=== PATIENT | female | born 2000 | race Caucasian/White ===

== ENCOUNTER 2021-01-28 12:17 | Observation (INO) ==
[2021-01-28] MEDS ORDERED: SODIUM CHLORIDE 0.9% 1000ML 2,000 ML IV ONE (13:32)
--- NOTE | 2021-01-28 13:44 | Emergency Department Note ---
Impression & Plan DKA (diabetic ketoacidoses), Hyperglycemia, Diabetes ED Provider Note NAME: NANDO LOZANO AGE: 20 SEX: F : 2000 ARRIVES VIA: Walk-In INFORMANT: Patient ED PROVIDER(S): Kirby Ambriz DO CHIEF COMPLAINT: Nausea vomiting and hyperglycemia HPI: Patient is a 20-year-old female who presents ER for nausea and vomiting. She is type I diabetic. Blood sugars were elevated last night and persistently elevated this morning at 500. She will give herself 4 units of insulin/Humalog this morning with blood sugar of 500 as she did not eat anything. She notes this was not her typical treatment for 500. She vomited several times today. Denies any headache or change in vision. No chest pain or shortness of breath. Admits to epigastric belly pain which has been persistent since this started. No dysuria, urgency, or frequency. Last menstrual period just finished up. No other exacerbating or remitting factors. ROS: See above HPI for pertinent positives & negatives. A total of 10 systems reviewed and were otherwise negative. PAST MEDICAL HISTORY:See Below PAST SURGICAL HISTORY:See Below FAMILY HISTORY:See Below SOCIAL HISTORY:See Below HOME MEDICATIONS:See Below ALLERGIES:See Below VITALS:See Below PHYSICAL EXAMINATION: GENERAL: Sitting up in bed, alert, well appearing, well nourished, no distress, non-toxic EYE EXAM: normal conjunctiva. OROPHARYNX: no exudate, no erythema, lips, buccal mucosa, and tongue normal and mucous membranes are moist NECK: supple, no nuchal rigidity, no adenopathy, non-tender LUNGS: Clear to auscultation. Normal chest wall mechanics HEART: no murmurs, S1 normal and S2 normal ABDOMEN: abdomen soft, non-tender, normo-active bowel sounds, no masses, no rebound or guarding. UPPER EXTREMITIES: upper extremities are grossly normal. LOWER EXTREMITIES: No pitting edema. NEURO EXAM: Normal sensorium, cranial nerves II-XII grossly intact, normal speech, no gross weakness of arms, no gross weakness of legs. MEDICAL DECISION MAKING: Patient is a 20-year-old female who presents the ER for nausea vomiting associate with blood sugars of 500. She is type I diabetic. IV was established blood work was obtained. Heart rate was 140s. She was given 3 L of IV fluids. Labs show no significant leukocytosis and hemoglobin of 16.5 which favor secondary to dehydration. VBG with a pH of 7.25. BMP with a CO2 of 15. Lipase was unremarkable. UA with plus for ketones. was negative. Covid was negative. CT abdomen pelvis was unremarkable. Sugar was 280 on the BMP. With it being this low continued aggressive IV fluid hydration as she is feeling significantly better. With her acidosis is 7.25 and bicarb at 15 discussed with the hospitalist for observation overnight patient was admitted for further work- up Triage Nursing notes reviewed. Limited review of prior medical records performed Vital Signs: reviewed and remarkable for tachy Differential diagnosis: Differential diagnoses includes but is not limited to gastritis, peptic ulcer disease, GERD, gallbladder disease, pancreatitis, small bowel obstruction, acute coronary syndrome, pericarditis, ischemic bowel, irritable bowel disease, irritable bowel syndrome, appendicitis, diverticulitis, malignancy, hernia, urinary tract infection, torsion, [/ectopic (if female)], perforation, trauma, infectious. ER treatment provided: See below Diagnostics interpreted by me: Cardiac Monitoring: An order was placed for continuous cardiac monitoring. The monitor shows a rate of 121 with sinus rhythm. Laboratory studies: As stated above and show below. Imaging studies: CT abdomen pelvis was unremarkable Consultation(s): Discussed with Markos who is working with Dr. Hager for further evaluation Procedures: none Critical Care: None Past Med/Surg History Medical History (Updated 01/28/21 @ 17:11 by Kirby Ambriz DO) Diabetes Hyperglycemia Family History (Updated 01/28/21 @ 15:52 by TRISHA Harrison) Father Dyslipidemia Social History Smoking Status: Never smoker Feels Safe at Home: Yes Allergies Allergies Allergy/AdvReac Type Severity Reaction Status Date / Time No Known Allergies Allergy Unverified 01/28/21 15:03 Home Meds Home Medications Medication Instructions Recorded Confirmed drospirenone-ethinyl estradiol 1 tab PO HS 01/28/21 01/28/21 insulin degludec [Tresiba 24 unit SUBCUT HS 01/28/21 01/28/21 FlexTouch U-100] insulin lispro [Humalog KwikPen 0 unit SUBCUT TID 01/28/21 01/28/21 Insulin] Results & Data (ED) Vital Signs Vital Signs - 24 hr 01/28/21 12:32 01/28/21 13:54 01/28/21 15:09 Temperature 36.5 C Temperature Source Temporal Artery Scan Pulse Rate 149 H Pulse Rate [Left] 108 H 94 H Pulse Rhythm [Left] Regular Pulse Strength [Left] Normal Respiratory Rate 20 16 20 Respiratory Effort / Characteristics Non-Labored Spontaneous Non-Labored Spontaneous Non-Labored Spontaneous Respiratory Depth Normal Normal Normal Respiratory Pattern Regular Regular Regular Blood Pressure 115/88 Blood Pressure [Right Arm] 115/87 107/73 Blood Pressure Mean 97 Blood Pressure Mean [Right Arm] 96 84 Blood Pressure Position Sitting Blood Pressure Position [Right Arm] Lying Pulse Oximetry 99 98 99 Oxygen Delivery Method Room Air Room Air Room Air Sepsis Recent Fever Within 48 Hours No Sepsis New/Unexplained Change in Mental Status N/A Sepsis Action Taken by Nursing No Action Required 01/28/21 16:39 Temperature Temperature Source Pulse Rate Pulse Rate [Left] 95 H Pulse Rhythm [Left] Pulse Strength [Left] Respiratory Rate 20 Respiratory Effort / Characteristics Respiratory Depth Respiratory Pattern Blood Pressure Blood Pressure [Right Arm] 109/68 Blood Pressure Mean Blood Pressure Mean [Right Arm] 81 Blood Pressure Position Blood Pressure Position [Right Arm] Pulse Oximetry 99 Oxygen Delivery Method Room Air Sepsis Recent Fever Within 48 Hours Sepsis New/Unexplained Change in Mental Status Sepsis Action Taken by Nursing Laboratory Data Result diagrams: 01/28/21 13:50 01/28/21 16:12 Lab Results 01/28/21 01/28/21 01/28/21 Range/Units 13:35 13:35 13:35 WBC (4.8-10.8) K/uL RBC (4.2-5.4) M/uL Hgb (12.0-16.0) g/dL POC Hgb (12.0-16.0) g/dl Hct (37-47) % POC Hct (37-47) % MCV (80-100) fL MCH (25-34) pg MCHC (32-36) g/dL RDW Std Deviation (36.4-46.3) fL RDW Coeff of Clarice (11.5-14.5) % Plt Count (130-400) K/uL MPV (7.4-10.4) fL Immature Gran % (Auto) % Neut % (Auto) % Lymph % (Auto) % Delta % (Auto) % Eos % (Auto) % Baso % (Auto) % Neut # (Auto) (1.4-6.5) K/uL Lymph # (Auto) (1.2-3.4) K/uL Delta # (Auto) (0.11-0.59) K/uL Eos # (Auto) (0-0.5) K/uL Baso # (Auto) (0-0.2) K/uL Immature Gran # (Auto) (0.00-0.02) K/uL VBG pH (7.36-7.41) VBG pCO2 (38-50) mmHg VBG pO2 mmHg VBG HCO3 mmol/L VBG O2 Saturation % VBG Base Excess mEq/L Barometric Pressure mm/Hg POC Sodium (135-144) mmol/L Sodium (136-145) mmol/L POC Potassium (3.3-5.0) mmol/L Potassium (3.5-5.1) mmol/L POC Chloride (101-112) mmol/L Chloride (98-107) mmol/L Carbon Dioxide (21-32) mmol/L POC Total CO2 (24-31) mmol/L Anion Gap (3-11) POC Anion Gap (16-25) mmol/L POC BUN (7-18) mg/dl BUN (7-18) mg/dl Creatinine (0.6-1.2) mg/dl POC Creatinine mg/dl Est Cr Clr Drug Dosing ml/min Est GFR ( Amer) Est GFR (Non-Af Amer) BUN/Creatinine Ratio (10-20) Glucose (70-99) mg/dl POC Glucose 288 H (70-99) mg/dl POC Glucose (other) (70-99) mg/dl Calcium (8.5-10.1) mg/dl POC Ioniz Calcium Naheed mmol/l Total Bilirubin (0.2-1) mg/dl AST (15-37) U/L ALT (12-78) U/L Alkaline Phosphatase (45-117) U/L Total Protein (6.4-8.2) gm/dl Albumin (3.4-5.0) gm/dl Globulin (2.5-4.0) gm/dl Albumin/Globulin Ratio (0.9-2) Lipase (73-393) U/L Urine Color Yellow Urine Appearance Cloudy A (Clear) Urine pH 5.5 (4.5-7.5) Ur Specific [place] 1.041 H (1.000-1.030) Urine Protein 3+ H (Negative) Urine Glucose (UA) 3+ H (Negative) Urine Ketones 4+ H (Negative) Urine Blood 3+ H (Negative) Urine Nitrite Negative (Negative) Urine Bilirubin Negative (Negative) Urine Urobilinogen Negative (Negative) Ur Leukocyte Esterase Negative (Negative) Urine WBC (Auto) >30 H (0-5) /hpf Urine RBC (Auto) 10-30 H (0-4) /hpf U Hyaline Cast (Auto) 1-5 (0-5) /lpf U Epithel Cells (Auto) >30 H (0-5) /lpf Urine Bacteria (Auto) 1+ H (Negative) Granular Casts 1-5 H (0) /lpf Urine Test Negative (Negative) COVID-19 Eval Order SARS-CoV-2, RNA, NAAT (NEGATIVE) 01/28/21 01/28/21 01/28/21 Range/Units 13:50 13:50 13:55 WBC 6.46 (4.8-10.8) K/uL RBC 5.32 (4.2-5.4) M/uL Hgb 16.5 H (12.0-16.0) g/dL POC Hgb 18.0 H (12.0-16.0) g/dl Hct 46.4 (37-47) % POC Hct 53 H (37-47) % MCV 87.2 (80-100) fL MCH 31.0 (25-34) pg MCHC 35.6 (32-36) g/dL RDW Std Deviation 38.7 (36.4-46.3) fL RDW Coeff of Clarice 12.0 (11.5-14.5) % Plt Count 260 (130-400) K/uL MPV 11.2 H (7.4-10.4) fL Immature Gran % (Auto) 0.2 % Neut % (Auto) 78.5 % Lymph % (Auto) 16.6 % Delta % (Auto) 4.0 % Eos % (Auto) 0.2 % Baso % (Auto) 0.5 % Neut # (Auto) 5.08 (1.4-6.5) K/uL Lymph # (Auto) 1.07 L (1.2-3.4) K/uL Delta # (Auto) 0.26 (0.11-0.59) K/uL Eos # (Auto) 0.01 (0-0.5) K/uL Baso # (Auto) 0.03 (0-0.2) K/uL Immature Gran # (Auto) 0.01 (0.00-0.02) K/uL VBG pH (7.36-7.41) VBG pCO2 (38-50) mmHg VBG pO2 mmHg VBG HCO3 mmol/L VBG O2 Saturation % VBG Base Excess mEq/L Barometric Pressure mm/Hg POC Sodium 133 L (135-144) mmol/L Sodium 131 L (136-145) mmol/L POC Potassium 4.0 (3.3-5.0) mmol/L Potassium 3.8 (3.5-5.1) mmol/L POC Chloride 104 (101-112) mmol/L Chloride 102 (98-107) mmol/L Carbon Dioxide 15 L (21-32) mmol/L POC Total CO2 15 L (24-31) mmol/L Anion Gap 14.0 H (3-11) POC Anion Gap 19.0 (16-25) mmol/L POC BUN 14 (7-18) mg/dl BUN 13 (7-18) mg/dl Creatinine 1.14 (0.6-1.2) mg/dl POC Creatinine 0.6 mg/dl Est Cr Clr Drug Dosing 58.5 ml/min Est GFR ( Amer) 80.2 Est GFR (Non-Af Amer) 69.2 BUN/Creatinine Ratio 11.7 (10-20) Glucose 285 H (70-99) mg/dl POC Glucose (70-99) mg/dl POC Glucose (other) 290 H (70-99) mg/dl Calcium 10.0 (8.5-10.1) mg/dl POC Ioniz Calcium Naheed 1.33 mmol/l Total Bilirubin 0.7 (0.2-1) mg/dl AST 12 L (15-37) U/L ALT 20 (12-78) U/L Alkaline Phosphatase 107 (45-117) U/L Total Protein 9.2 H (6.4-8.2) gm/dl Albumin 4.1 (3.4-5.0) gm/dl Globulin 5.1 H (2.5-4.0) gm/dl Albumin/Globulin Ratio 0.8 L (0.9-2) Lipase (73-393) U/L Urine Color Urine Appearance (Clear) Urine pH (4.5-7.5) Ur Specific [place] (1.000-1.030) Urine Protein (Negative) Urine Glucose (UA) (Negative) Urine Ketones (Negative) Urine Blood (Negative) Urine Nitrite (Negative) Urine Bilirubin (Negative) Urine Urobilinogen (Negative) Ur Leukocyte Esterase (Negative) Urine WBC (Auto) (0-5) /hpf Urine RBC (Auto) (0-4) /hpf U Hyaline Cast (Auto) (0-5) /lpf U Epithel Cells (Auto) (0-5) /lpf Urine Bacteria (Auto) (Negative) Granular Casts (0) /lpf Urine Test (Negative) COVID-19 Eval Order SARS-CoV-2, RNA, NAAT (NEGATIVE) 01/28/21 01/28/21 01/28/21 Range/Units 14:55 14:55 14:58 WBC (4.8-10.8) K/uL RBC (4.2-5.4) M/uL Hgb (12.0-16.0) g/dL POC Hgb (12.0-16.0) g/dl Hct (37-47) % POC Hct (37-47) % MCV (80-100) fL MCH (25-34) pg MCHC (32-36) g/dL RDW Std Deviation (36.4-46.3) fL RDW Coeff of Clarice (11.5-14.5) % Plt Count (130-400) K/uL MPV (7.4-10.4) fL Immature Gran % (Auto) % Neut % (Auto) % Lymph % (Auto) % Delta % (Auto) % Eos % (Auto) % Baso % (Auto) % Neut # (Auto) (1.4-6.5) K/uL Lymph # (Auto) (1.2-3.4) K/uL Delta # (Auto) (0.11-0.59) K/uL Eos # (Auto) (0-0.5) K/uL Baso # (Auto) (0-0.2) K/uL Immature Gran # (Auto) (0.00-0.02) K/uL VBG pH (7.36-7.41) VBG pCO2 (38-50) mmHg VBG pO2 mmHg VBG HCO3 mmol/L VBG O2 Saturation % VBG Base Excess mEq/L Barometric Pressure mm/Hg POC Sodium (135-144) mmol/L Sodium (136-145) mmol/L POC Potassium (3.3-5.0) mmol/L Potassium (3.5-5.1) mmol/L POC Chloride (101-112) mmol/L Chloride (98-107) mmol/L Carbon Dioxide (21-32) mmol/L POC Total CO2 (24-31) mmol/L Anion Gap (3-11) POC Anion Gap (16-25) mmol/L POC BUN (7-18) mg/dl BUN (7-18) mg/dl Creatinine (0.6-1.2) mg/dl POC Creatinine mg/dl Est Cr Clr Drug Dosing ml/min Est GFR ( Amer) Est GFR (Non-Af Amer) BUN/Creatinine Ratio (10-20) Glucose (70-99) mg/dl POC Glucose 180 H (70-99) mg/dl POC Glucose (other) (70-99) mg/dl Calcium (8.5-10.1) mg/dl POC Ioniz Calcium Naheed mmol/l Total Bilirubin (0.2-1) mg/dl AST (15-37) U/L ALT (12-78) U/L Alkaline Phosphatase (45-117) U/L Total Protein (6.4-8.2) gm/dl Albumin (3.4-5.0) gm/dl Globulin (2.5-4.0) gm/dl Albumin/Globulin Ratio (0.9-2) Lipase (73-393) U/L Urine Color Urine Appearance (Clear) Urine pH (4.5-7.5) Ur Specific [place] (1.000-1.030) Urine Protein (Negative) Urine Glucose (UA) (Negative) Urine Ketones (Negative) Urine Blood (Negative) Urine Nitrite (Negative) Urine Bilirubin (Negative) Urine Urobilinogen (Negative) Ur Leukocyte Esterase (Negative) Urine WBC (Auto) (0-5) /hpf Urine RBC (Auto) (0-4) /hpf U Hyaline Cast (Auto) (0-5) /lpf U Epithel Cells (Auto) (0-5) /lpf Urine Bacteria (Auto) (Negative) Granular Casts (0) /lpf Urine Test (Negative) COVID-19 Eval [facility] SARS-CoV-2, RNA, NAAT NEGATIVE (NEGATIVE) 01/28/21 01/28/21 01/28/21 Range/Units 15:00 16:12 16:52 WBC (4.8-10.8) K/uL RBC (4.2-5.4) M/uL Hgb (12.0-16.0) g/dL POC Hgb (12.0-16.0) g/dl Hct (37-47) % POC Hct (37-47) % MCV (80-100) fL MCH (25-34) pg MCHC (32-36) g/dL RDW Std Deviation (36.4-46.3) fL RDW Coeff of Clarice (11.5-14.5) % Plt Count (130-400) K/uL MPV (7.4-10.4) fL Immature Gran % (Auto) % Neut % (Auto) % Lymph % (Auto) % Delta % (Auto) % Eos % (Auto) % Baso % (Auto) % Neut # (Auto) (1.4-6.5) K/uL Lymph # (Auto) (1.2-3.4) K/uL Delta # (Auto) (0.11-0.59) K/uL Eos # (Auto) (0-0.5) K/uL Baso # (Auto) (0-0.2) K/uL Immature Gran # (Auto) (0.00-0.02) K/uL VBG pH 7.25 L (7.36-7.41) VBG pCO2 33 L (38-50) mmHg VBG pO2 32 mmHg VBG HCO3 14 mmol/L VBG O2 Saturation 65.3 % VBG Base Excess -12.0 mEq/L Barometric Pressure 727.4 mm/Hg POC Sodium (135-144) mmol/L Sodium 139 D (136-145) mmol/L POC Potassium (3.3-5.0) mmol/L Potassium 4.5 D (3.5-5.1) mmol/L POC Chloride (101-112) mmol/L Chloride 112 H (98-107) mmol/L Carbon Dioxide 17 L (21-32) mmol/L POC Total CO2 (24-31) mmol/L Anion Gap 10.0 (3-11) POC Anion Gap (16-25) mmol/L POC BUN (7-18) mg/dl BUN 11 (7-18) mg/dl Creatinine 0.79 D (0.6-1.2) mg/dl POC Creatinine mg/dl Est Cr Clr Drug Dosing 84.5 ml/min Est GFR ( Amer) 124.9 Est GFR (Non-Af Amer) 107.8 BUN/Creatinine Ratio 13.5 (10-20) Glucose 180 H (70-99) mg/dl POC Glucose 153 H (70-99) mg/dl POC Glucose (other) (70-99) mg/dl Calcium 7.6 L D (8.5-10.1) mg/dl POC Ioniz Calcium Naheed mmol/l Total Bilirubin (0.2-1) mg/dl AST (15-37) U/L ALT (12-78) U/L Alkaline Phosphatase (45-117) U/L Total Protein (6.4-8.2) gm/dl Albumin (3.4-5.0) gm/dl Globulin (2.5-4.0) gm/dl Albumin/Globulin Ratio (0.9-2) Lipase 85 (73-393) U/L Urine Color Urine Appearance (Clear) Urine pH (4.5-7.5) Ur Specific [place] (1.000-1.030) Urine Protein (Negative) Urine Glucose (UA) (Negative) Urine Ketones (Negative) Urine Blood (Negative) Urine Nitrite (Negative) Urine Bilirubin (Negative) Urine Urobilinogen (Negative) Ur Leukocyte Esterase (Negative) Urine WBC (Auto) (0-5) /hpf Urine RBC (Auto) (0-4) /hpf U Hyaline Cast (Auto) (0-5) /lpf U Epithel Cells (Auto) (0-5) /lpf Urine Bacteria (Auto) (Negative) Granular Casts (0) /lpf Urine Test (Negative) COVID-19 Eval Order SARS-CoV-2, RNA, NAAT (NEGATIVE) Administered Medications Discontinued Medications Sodium Chloride (Nss 1000ml) 2,000 mls @ 999 mls/hr IV .Q2H1M ONE Stop: 01/28/21 15:32 Last Infusion: 01/28/21 15:16 Dose: 0 mls/hr Documented by: [id number] Admin: 01/28/21 13:56 Dose: 999 mls/hr Documented by: [id number] Sodium Chloride (Nss 1000ml) 1,000 mls @ 999 mls/hr IV .Q1H1M ONE Stop: 01/28/21 16:09 Last Infusion: 01/28/21 16:40 Dose: 0 mls/hr Documented by: [id number] Admin: 01/28/21 15:16 Dose: 999 mls/hr Documented by: [id number] Ioversol (Optiray 320 100ml) 89 ml IV ONCE ONE Stop: 01/28/21 14:32 Last Admin: 01/28/21 14:31 Dose: 89 ml Documented by: [id number] Imaging Data Radiologist's Impression: Abdomen/Pelvis CT 01/28/21 13:37 CT SCAN OF THE ABDOMEN AND PELVIS WITH IV CONTRAST CLINICAL HISTORY: Generalized abdominal pain. Nausea and vomiting. Hyperglycemia. COMPARISON STUDY: No priors. TECHNIQUE: Following the IV administration of 89 cc of Optiray 320, CT scan of the abdomen and pelvis is performed from the lung bases to the proximal femora. Images are reviewed in the axial, sagittal, and coronal planes. IV contrast was administered without complication. A dose lowering technique was utilized adhering to the principles of ALARA. CT DOSE: 243.67 mGycm FINDINGS: Lung bases: The heart is normal in size and without pericardial effusion. The lung bases are clear. Liver: The contrast-enhanced liver is normal in size, contour, and attenuation. Fatty infiltration is seen adjacent to falciform ligament. There is no intrahepatic biliary ductal dilatation. The hepatic veins and portal veins are patent. Gallbladder: Unremarkable. Spleen: Normal in size and attenuation. Pancreas: Unremarkable. Adrenal glands: Unremarkable. Kidneys: The contrast enhanced kidneys are normal in size and without hydronephrosis. The kidneys enhance symmetrically. Abdominal vasculature: The abdominal aorta is normal in course and caliber. Bowel: There is no bowel obstruction. The appendix is well-visualized and normal. Peritoneum: There is no intraperitoneal free air or abdominal ascites. Lymphadenopathy: None. Pelvic viscera: The bladder, uterus, and adnexa are normal as visualized noting bilateral ovarian follicles. Skeletal structures: No lytic or blastic lesions are seen. IMPRESSION: There are no acute infectious or inflammatory findings in the abdomen or pelvis. ACT 112: Negative or not required by law. Electronically signed by: Guillermo Jin M.D. 01/28/2021 2:41 PM Discharge Plan Visit Data Chief Complaint: Hyperglycemia Stated Complaint: NAUSEA,VOMITING,HI BLOOD SUGAR(TYPE 1)SOB ED Provider: Kirby Ambriz Discharge Problem: DKA (diabetic ketoacidoses), Hyperglycemia, Diabetes Forms Stand Alone Forms: [facility] Prescriptions Prescriptions: No Action insulin lispro [Humalog KwikPen Insulin] 100 unit/mL insulin pen 0 unit SUBCUT TID RF: 0 drospirenone-ethinyl estradiol 3-0.02 mg tablet 1 tab PO HS RF: 0 Tresiba FlexTouch U-100 100 unit/mL (3 mL) insulin pen 24 unit SUBCUT HS RF: 0 Discharge Problem: DKA (diabetic ketoacidoses) Qualifiers: Diabetes mellitus type: type 1 Diabetes mellitus complication detail: without coma Qualified Code(s): E10.10 - Type 1 diabetes mellitus with ketoacidosis without coma Diabetes Qualifiers: Diabetes mellitus type: type 1 Diabetes mellitus complication status: with other specified complication Qualified Code(s): E10.69 - Type 1 diabetes mellitus with other specified complication
[2021-01-28 13:47] LABS: Appearance Urine Cloudy (Clear); Bacteria Urine Automated 1+ (Negative); Bilirubin Urine Negative (Negative); Blood Urine 3+ (Negative); Color Urine Yellow; Epithelial Cell Urine Auto >30 /lpf (0-5); Glucose Urine UA 3+ (Negative); Ketones Urine 4+ (Negative); Leukocyte Esterase Urine Negative (Negative); Nitrite Urine Negative (Negative); Protein Urine 3+ (Negative); Specific Gravity Urine 1.041 (1.000-1.030); Urobilinogen Urine Negative (Negative); WBC Urine Automated >30 /hpf (0-5); pH Urine 5.5 (4.5-7.5)
[2021-01-28 14:00] LABS: Basophils # (auto) 0.03 K/uL (0-0.2); Basophils % (auto) 0.5 %; Eosinophils # (auto) 0.01 K/uL (0-0.5); Eosinophils % (auto) 0.2 %; Hematocrit (blood only) 46.4 % (37-47); Hemoglobin 16.5 g/dL (12.0-16.0); Immature Granulocytes # (auto) 0.01 K/uL (0.00-0.02); Immature Granulocytes % (auto) 0.2 %; Lymphocytes # (auto) 1.07 K/uL (1.2-3.4); Lymphocytes % (auto) 16.6 %; Mean Corpuscular Hgb Conc 35.6 g/dL (32-36); Mean Corpuscular Volume 87.2 fL (80-100); Mean Platelet Volume 11.2 fL (7.4-10.4); Monocytes # (auto) 0.26 K/uL (0.11-0.59); Neutrophils # (auto) 5.08 K/uL (1.4-6.5); Neutrophils % (auto) 78.5 %; Platelet Count 260 K/uL (130-400); RDW Standard Deviation 38.7 fL (36.4-46.3); Red Blood Count 5.32 M/uL (4.2-5.4); White Blood Count 6.46 K/uL (4.8-10.8)
[2021-01-28 14:03] LABS: Pregnancy Test, Urine Negative (Negative)
[2021-01-28 14:09] LABS: iSTAT Creatinine 0.6 mg/dl; iSTAT Ionized Calcium 1.33 mmol/l
[2021-01-28 14:20] LABS: Albumin Level 4.1 gm/dl (3.4-5.0); BUN Creatinine Ratio 11.7 (10-20); Creatinine Clr Calc Pharmacy 58.5 ml/min; Est GFR (African American) 80.2; Est GFR (Non-African American) 69.2; Potassium 3.8 mmol/L (3.5-5.1)
[2021-01-28 14:22] LABS: Albumin Globulin Ratio 0.8 (0.9-2); Bilirubin,Total 0.7 mg/dl (0.2-1); Globulin 5.1 gm/dl (2.5-4.0); Total Protein 9.2 gm/dl (6.4-8.2)
[2021-01-28] MEDS ORDERED: OPTIRAY 320 100ml IV ONE (14:31)
--- NOTE | 2021-01-28 14:42 | CT Scan Report ---
CT SCAN OF THE ABDOMEN AND PELVIS WITH IV CONTRAST CLINICAL HISTORY: Generalized abdominal pain. Nausea and vomiting. Hyperglycemia. COMPARISON STUDY: No priors. TECHNIQUE: Following the IV administration of 89 cc of Optiray 320, CT scan of the abdomen and pelvi s is performed from the lung bases to the proximal femora. Images are reviewed in the axial, sagittal , and coronal planes. IV contrast was administered without complication. A dose lowering technique wa s utilized adhering to the principles of ALARA. CT DOSE: 243.67 mGycm FINDINGS: Lung bases: The heart is normal in size and without pericardial effusion. The lung bases are clear. Liver: The contrast-enhanced liver is normal in size, contour, and attenuation. Fatty infiltration is seen adjacent to falciform ligament. There is no intrahepatic biliary ductal dilatation. The hepatic veins and portal veins are patent. Gallbladder: Unremarkable. Spleen: Normal in size and attenuation. Pancreas: Unremarkable. Adrenal glands: Unremarkable. Kidneys: The contrast enhanced kidneys are normal in size and without hydronephrosis. The kidneys enh ance symmetrically. Abdominal vasculature: The abdominal aorta is normal in course and caliber. Bowel: There is no bowel obstruction. The appendix is well-visualized and normal. Peritoneum: There is no intraperitoneal free air or abdominal ascites. Lymphadenopathy: None. Pelvic viscera: The bladder, uterus, and adnexa are normal as visualized noting bilateral ovarian fol licles. Skeletal structures: No lytic or blastic lesions are seen. IMPRESSION: There are no acute infectious or inflammatory findings in the abdomen or pelvis. ACT 112: Negative or not required by law. Electronically signed by: Guillermo Jin M.D. 01/28/2021 2:41 PM
[2021-01-28] MEDS ORDERED: SODIUM CHLORIDE 0.9% 1000ML 1,000 ML IV ONE (15:09)
[2021-01-28 15:17] LABS: Oxygen Saturation VBG 65.3 %; pH VBG 7.25 (7.36-7.41)
--- NOTE | 2021-01-28 15:45 | History & Physical Report ---
Date of Service January 28, 2021 Assessment & Plan (1) DKA (diabetic ketoacidoses): Patient with mild DKA resolution with gap closure and glucose <180 upon admissio - oral hydration and supplement with IVF if needed - Home insulin, Lantus dose now upon admission to the floor - Aspart sliding scale - BMP q 4 hours - Patient was on lantus before but was changed to Triseba- she is unsure why. Triseba is non-formulary here but is 1:1 conversion (2) Diabetes: DMI reports normally well controlled blood glucose. She reports that she does have the subq scanner at home in [place] just needs to get it. - Triseba 24 units, Humalog Lispro - sliding scale TID 1:10 ratio - Patient with mild case of DKA, - UA negative, contaminated sample - CT scan of abdomen and pelvis negative for acute process including gallbladder (3) Abdominal pain: Likely related to her hyperglycemia and vomitting - CT of the abdomen and pelvis negative - Lipase negative - Allow patient to eat and evaluate abdominal discomfort - consider following up with ultrasound if returns - No fever, no wbc elevation History of Present Illness Primary Care Provider: NO PCP 20 YOF with past medical history of DM I, followed by her digital project coordinator at [facility]. She sees them about every 3 months. She is on home therapy of Tresiba 24 units HS and Lispro sliding scale. Patient came to the emergency room today after checking her blood glucose this morning and was 500, she reports that she was up all night urinating, as well as nausea with epigastric abdominal discomfort. She endorses eating a personal gilbert pizza last night and covering herself with 5 units insulin and her Triseba. She endorses drinking water only. She denies any fevers, chills, or cough or shortness of breath. For her elevated glucose this morning, she gave herself 4 units of her Lispro prior to coming. Her BG on arrival was 285 with a GAP of 14 and a HCO3 of 15. In the ER the patient received 3 liters of normal saline and a CT scan of the abdomen and pelvis, and ECG. The hospitalist service was called for admission. A repeat of her BMP, and lipase were sent. VBG following volume replacement resulted with PH 7.25, HCO3 14. Will check BG now and BMP now; dose insulin and fluid off of that as well. Patient had one other episode of DKA a couple of years ago that precluded with nausea and vomiting for a few days, she was admitted to the hospital at that time and was placed on insulin drip for 3 days. Allergies Allergy/AdvReac Type Severity Reaction Status Date / Time No Known Allergies Allergy Unverified 01/28/21 15:03 Home Medications Medication Instructions Recorded Confirmed Type Tresiba FlexTouch U-100 24 unit SUBCUT HS 01/28/21 01/28/21 History drospirenone-ethinyl estradiol 1 tab PO HS 01/28/21 01/28/21 History insulin lispro [Humalog KwikPen 0 unit SUBCUT TID 01/28/21 01/28/21 History Insulin] Past Med/Surg History Medical History (Updated 01/31/21 @ 00:07 by Jamey Whitney) Diabetes DKA (diabetic ketoacidoses) Hyperglycemia Family History (Updated 01/28/21 @ 19:43 by TRISHA Harrison) Father Dyslipidemia Hypertension Mother Diabetes Social History Smoking Status: Never smoker Hx Alcohol Use: Yes Alcohol type: other Hx Substance Use: No Preferred Language: Yoruba Communication Ability: Effective [employer] Required: No Beliefs That Will Affect Care: None Current Living Situation: Other Current Living Situation Comment: Lives with 3 roomates Other Information That Helps Us Care for You: No Feels Safe at Home: Yes Safety Concerns: Feels Safe At This Time Assistive Devices: None Review of Systems Review of Systems: REVIEW OF SYSTEMS: Constitutional: No fever, sweats or chills Eyes: No diplopia, no worsening or blurred vision ENT: normal hearing, no trouble swallowing Respiratory: No cough, sputum, dyspnea at rest or on exertion Cardiovascular: No chest pain, tightness or palpitations Abdomen: (+)epigastric pain, nausea, (-) vomiting, diarrhea or constipation Musculoskeletal: No joint pain, calf pain, swelling Neurologic: No weakness, numbness/tingling, or balance problems Psychiatric: No anxiety or depression Skin: No rash or itch Physical Exam Physical Exam: PHYSICAL EXAM: General: awake, alert, no apparent distress Head: Normocephalic, atraumatic ENT: PERRL, EOMI, no pharyngeal exudate, mucous membranes moist Neuro: AAO x 3, speech clear and appropriate, strength intact bilaterally 5/5, sensation intact and equal all extremities and dermatomes, no pronator drift Chest: equal rise and fall of the chest, no accessory muscle use, no heaves or thrills, Clear to auscultation, on room air, Cardiac: Regular rate and rhythm, telemetry reviewed, skin warm dry, cap refill <3 seconds, peripheral pulses +2 no JVD, no murmur, no JVD, no edema GI: NABS x 4 quadrants, soft, tender to palpation right upper quad, no rebound, guarding or tenderness : Spontaneously voiding, no pain, no CVA tenderness, Extremities: Normal inspection, no peripheral edema or erythema, calfs nontender to palpation Psych: Normal mood and affect Skin: no rash or erythema Results & Data Results & Data ([facility]) Vital Signs (Past 12 Hours) Vital Signs Temp Pulse Pulse Resp BP BP Pulse Ox 01/28/21 15:09 94 H 20 107/73 99 01/28/21 13:54 108 H 16 115/87 98 01/28/21 12:32 36.5 C 149 H 20 115/88 99 Supervising Physician Co-Signing Physician Notes During my face to face encounter, I obtained a history and physical examination. I reviewed above note and agree with it. I discussed plan of care with patient and APC Ibrahima. I answered all of the patient's questions. Admit for DKA. Placed on insulin drip. Anion gap closed. will bridge and have patient eat. PG Care Time/CCT Total # of Minutes Spent Total Time Spent with Patient: Total time spent is greater than 50% in coordination of care (as documented) at patient's floor/unit and/or counseling patient: Coding Level of Care Code 57121 Initial Inpt Care Lvl 3 Diagnoses DKA (diabetic ketoacidoses) E10.10 Diabetes mellitus complication detail: without coma Diabetes mellitus type: type 1 Diabetes E10.9 Diabetes mellitus complication status: without complication Diabetes mellitus type: type 1 Abdominal pain R10.9 (1) DKA (diabetic ketoacidoses) Diabetes mellitus complication detail: without coma Diabetes mellitus type: type 1 Qualified Code(s): E10.10 - Type 1 diabetes mellitus with ketoacidosis without coma (2) Diabetes Diabetes mellitus complication status: without complication Diabetes mellitus type: type 1 Qualified Code(s): E10.9 - Type 1 diabetes mellitus without complications
[2021-01-28 16:53] LABS: BUN Creatinine Ratio 13.5 (10-20); Calcium 7.6 mg/dl (8.5-10.1); Creatinine Clr Calc Pharmacy 84.5 ml/min; Est GFR (African American) 124.9; Est GFR (Non-African American) 107.8; Potassium 4.5 mmol/L (3.5-5.1)
[2021-01-28] MEDS ORDERED: DKA GOAL RANGE 150-250 mg/dl ONE (16:55)
[2021-01-28] MEDS ORDERED: INSULIN REGULAR 250 UNITS in SODIUM CHLORIDE 0.9% 247.5 ML IV SCH (17:00)
[2021-01-28] MEDS ORDERED: PENDING D5 1/2NS+20mEq KCL IVF SCH (17:00)
[2021-01-28] MEDS ORDERED: CARBOHYDRATES FOR HYPOGLYCEMIA PO PRN (17:29)
[2021-01-28] MEDS ORDERED: GLUCOSE 10 TABS/TUBE PO PRN (17:29)
[2021-01-28] MEDS ORDERED: GLUCOSE 40% GEL 15 GM TUBE PO PRN (17:29)
[2021-01-28] MEDS ORDERED: GLUCAGON FOR INJ 1 MG VIAL SQ PRN (17:29)
[2021-01-28] MEDS ORDERED: DEXTROSE 50% 50 ML SYRINGE IV PRN (17:29)
[2021-01-28] MEDS ORDERED: DC ALL PREVIOUSLY ORDERED DIABETES MEDS ONE (17:59)
[2021-01-28] MEDS ORDERED: ACETAMINOPHEN 325 MG TAB PO PRN (17:59)
[2021-01-28] MEDS ORDERED: ONDANSETRON INJ 2 MG/ML 2 ML VIAL IV PRN (17:59)
[2021-01-28] MEDS ORDERED: PNEUMOCOCCAL POLYSACCHARIDES 25 MCG/0.5 ML VIAL/SYR IM ONE (18:22)
[2021-01-28] MEDS ORDERED: PNEUMOCOCCAL ADMINISTRATION CHARGE ONE (18:22)
[2021-01-28 19:07] LABS: BUN Creatinine Ratio 11.6 (10-20); Calcium 7.9 mg/dl (8.5-10.1); Creatinine Clr Calc Pharmacy 102.6 ml/min; Est GFR (African American) 147.4; Est GFR (Non-African American) 127.2; Magnesium 1.8 mg/dl (1.8-2.4); Potassium 3.6 mmol/L (3.5-5.1)
[2021-01-28] MEDS: INSULIN GLARGINE SOLOSTAR 100 UNITS/ML 3 ML PEN SC SCH (19:33)
[2021-01-28] MEDS: INSULIN ASPART 100 UNITS/ML 3 ML PEN SC SCH ×2 (19:35→21:25)
[2021-01-28] MEDS: NORMOSOL-R 1,000 ML IV SCH (19:38)
[2021-01-28] MEDS ORDERED: LACTATED RINGER'S 1,000 ML IV SCH (20:00)
[2021-01-28] MEDS ORDERED: INSULIN ASPART 100 UNITS/ML 3 ML PEN SC SCH (21:00)
[2021-01-28 22:31] LABS: BUN Creatinine Ratio 8.5 (10-20); Calcium 8.4 mg/dl (8.5-10.1); Creatinine Clr Calc Pharmacy 91.5 ml/min; Est GFR (African American) 135.2; Est GFR (Non-African American) 116.6; Magnesium 1.8 mg/dl (1.8-2.4); Potassium 3.3 mmol/L (3.5-5.1)
[2021-01-28] MEDS ORDERED: POTASSIUM CHLORIDE CRTAB 20 MEQ TABCR PO STA (22:48)
[2021-01-29 02:35] LABS: BUN Creatinine Ratio 11.2 (10-20); Blood Urea Nitrogen 6 mg/dl (7-18); Calcium 7.9 mg/dl (8.5-10.1); Carbon Dioxide 22 mmol/L (21-32); Chloride 111 mmol/L (98-107); Creatinine Clr Calc Pharmacy 120.9 ml/min; Est GFR (African American) > 150.0; Est GFR (Non-African American) 134.2; Glucose 130 mg/dl (70-99); Magnesium 1.9 mg/dl (1.8-2.4); Potassium 3.1 mmol/L (3.5-5.1); Sodium 140 mmol/L (136-145)
[2021-01-29] MEDS: POTASSIUM CHLORIDE / WTR 10 MEQ/100 ML PLCT IV SCH ×4 (03:47→06:49)
[2021-01-29] MEDS: NORMOSOL-R 1,000 ML IV SCH ×2 (05:46→15:25)
[2021-01-29 06:15] LABS: Hematocrit (blood only) 36.9 % (37-47); Hemoglobin 13.5 g/dL (12.0-16.0); Mean Corpuscular Hemoglobin 31.6 pg (25-34); Mean Corpuscular Hgb Conc 36.6 g/dL (32-36); Mean Corpuscular Volume 86.4 fL (80-100); Mean Platelet Volume 10.9 fL (7.4-10.4); Platelet Count 222 K/uL (130-400); RDW Coefficient of Variation 12.1 % (11.5-14.5); RDW Standard Deviation 38.1 fL (36.4-46.3); Red Blood Count 4.27 M/uL (4.2-5.4); White Blood Count 4.98 K/uL (4.8-10.8)
[2021-01-29 06:34] LABS: BUN Creatinine Ratio 10.6 (10-20); Blood Urea Nitrogen 5 mg/dl (7-18); Calcium 8.5 mg/dl (8.5-10.1); Carbon Dioxide 24 mmol/L (21-32); Chloride 111 mmol/L (98-107); Creatinine Clr Calc Pharmacy 139.9 ml/min; Est GFR (African American) > 150.0; Est GFR (Non-African American) 141.2; Glucose 82 mg/dl (70-99); Potassium 3.7 mmol/L (3.5-5.1); Sodium 140 mmol/L (136-145)
[2021-01-29 06:39] LABS: Basophils # (auto) 0.01 K/uL (0-0.2); Basophils % (auto) 0.2 %; Eosinophils # (auto) 0.11 K/uL (0-0.5); Eosinophils % (auto) 2.2 %; Lymphocytes # (auto) 3.19 K/uL (1.2-3.4); Lymphocytes % (auto) 64.1 %; Monocytes # (auto) 0.31 K/uL (0.11-0.59); Monocytes % (auto) 6.2 %; Neutrophils # (auto) 1.36 K/uL (1.4-6.5); Neutrophils % (auto) 27.3 %; RBC Morphology Unremarkable
[2021-01-29 07:09] LABS: Estimated Average Glucose 306 mg/dl; Hemoglobin A1C 12.3 % (4.5-5.6)
--- NOTE | 2021-01-29 07:34 | Discharge Summary ---
Date of Service January 29, 2021 Admission HPI Per Admitting Provider 20 YOF with past medical history of DM I, followed by her inspector mechanical at [facility]. She sees them about every 3 months. She is on home therapy of Tresiba 24 units HS and Lispro sliding scale. Patient came to the emergency room today after checking her blood glucose this morning and was 500, she reports that she was up all night urinating, as well as nausea with epigastric abdominal discomfort. She endorses eating a personal gilbert pizza last night and covering herself with 5 units insulin and her Triseba. She endorses drinking water only. She denies any fevers, chills, or cough or shortness of breath. For her elevated glucose this morning, she gave herself 4 units of her Lispro prior to coming. Her BG on arrival was 285 with a GAP of 14 and a HCO3 of 15. In the ER the patient received 3 liters of normal saline and a CT scan of the abdomen and pelvis, and ECG. The hospitalist service was called for admission. A repeat of her BMP, and lipase were sent. VBG following volume replacement resulted with PH 7.25, HCO3 14. Will check BG now and BMP now; dose insulin and fluid off of that as well. Patient had one other episode of DKA a couple of years ago that precluded with nausea and vomiting for a few days, she was admitted to the hospital at that time and was placed on insulin drip for 3 days. Discharge Data Allergies Allergy/AdvReac Type Severity Reaction Status Date / Time No Known Allergies Allergy Unverified 01/28/21 15:03 Consultations 01/28/21 15:12 ED Decision to Admit Stat Ordered Studies 01/28/21 13:37 CT abd pelvis IV con only Stat Hospital Course (1) DKA (diabetic ketoacidoses): Patient with mild DKA resolution with gap closure and glucose <180 upon admissio - oral hydration and supplement with IVF if needed - Home insulin, Lantus dose now upon admission to the floor - Aspart sliding scale - BMP q 4 hours - Patient was on lantus before but was changed to Triseba- she is unsure why. Triseba is non-formulary here but is 1:1 conversion (2) Diabetes: DMI reports normally well controlled blood glucose. She reports that she does have the subq scanner at home in [place] just needs to get it. - Triseba 24 units, Humalog Lispro - sliding scale TID 1:10 ratio - Patient with mild case of DKA, - UA negative, contaminated sample - CT scan of abdomen and pelvis negative for acute process including gallbladder (3) Abdominal pain: Likely related to her hyperglycemia and vomitting - CT of the abdomen and pelvis negative - Lipase negative - Allow patient to eat and evaluate abdominal discomfort - consider following up with ultrasound if returns - No fever, no wbc elevation Discharge Plan Discharge Items Reason For Visit: DKA Medications and DC Order Prescriptions: No Action insulin lispro [Humalog KwikPen Insulin] 100 unit/mL insulin pen 0 unit SUBCUT TID RF: 0 drospirenone-ethinyl estradiol 3-0.02 mg tablet 1 tab PO HS RF: 0 Tresiba FlexTouch U-100 100 unit/mL (3 mL) insulin pen 24 unit SUBCUT HS RF: 0 Admission Data Admit Date/Time: 01/28/21 16:32 Attending Provider: Arie Meadows Admit Provider: Arie Meadows Primary Care Provider: PCP,NO Other Providers: rAie Meadows
[2021-01-29] MEDS ORDERED: POTASSIUM CHLORIDE PWD 20 MEQ PACK PO STA (07:46)
[2021-01-29] MEDS: INSULIN ASPART 100 UNITS/ML 3 ML PEN SC SCH ×4 (07:57→20:48)
[2021-01-29] MEDS ORDERED: POTASSIUM CHLORIDE CRTAB 20 MEQ TABCR PO STA (09:06)
[2021-01-29 10:28] LABS: Blood Urea Nitrogen 5 mg/dl (7-18); Calcium 8.4 mg/dl (8.5-10.1); Carbon Dioxide 23 mmol/L (21-32); Chloride 107 mmol/L (98-107); Creatinine Clr Calc Pharmacy 115.8 ml/min; Est GFR (African American) > 150.0; Est GFR (Non-African American) 132.7; Glucose 372 mg/dl (70-99); Potassium 3.7 mmol/L (3.5-5.1); Sodium 137 mmol/L (136-145)
[2021-01-29 10:40] LABS: Beta-Hydroxybutyrate 15.49 mg/dl (0.2-2.81)
[2021-01-29] MEDS ORDERED: PHARMACY GLYCEMIC MGMT CONSULT PRN (13:51)
--- NOTE | 2021-01-29 13:55 | Hospitalist Progress Note ---
Date of Service January 29, 2021 Assessment & Plan (1) DKA (diabetic ketoacidoses): 20 yo female with h/o T1DM (follows with [facility] Endocrinology in [place], on Tresiba 24 nits HS + Lispro SSI, last A1c per patient report was ~9 three months ago) who was admitted to [facility] on 01/28 for DKA. DKA, T1DM N/V and abdominal pain, BSG~400, anion gap 14, HCO3 15, pH 7.25 on VBG --> DKA. Quickly improved with Insulin gtt - gap closure and glucose <180 upon transfer to the floor. However BSG persistently >300 following breakfast/lunch today - management ongoing. - continue home dose Lantus 24 units HS, Novolog SSI - continue IVFs with Normosol-R 100cc/hr - pharmacy glycemic consult placed today - Anion gap currently stable and WNL, pH 7.43; continue with close monitoring of BMP and VBG pH (Q4H) - patient counseled on dietary modifications as well as following up with Academic Assistant for consideration for CGM/insulin pump Abdominal Pain, resolved CT abdomen/pelvis unremarkable and lipase negative - suspect 2/2 DKA/nausea. Patient tolerating full diet without N/V/abdominal pain. - continue close monitoring for recurrence of pain (2) Diabetes: (3) Abdominal pain: Admission and Anticipated Discharge Date Admission Date: January 28, 2021 Supervising Physician Co-Signing Physician Notes Attending attestation Pt seen and examined in concert with Dr. Grant. In agreement with the documented findings as noted in the resident documentation with any exceptions or additions as noted here. Without complaint presently - abdominal pain has resolved, minimal nausea without vomiting. Had pancakes for breakfast, had similar carb load for lunch. On examination, S1/S2 nl RRR no MCG. CTAB. Abd NT/ND BS+ve DKA in type 1 diabetic with ongoing hyperglycemia - continue SQ insulin by protocol and consider return to drip based on the response of glycemic measures. Limit diet. Else see resident documentation as noted. Subjective Received juice this morning for glucose 80. Otherwise glucose has overall been well-controlled since transitioning to Lantus SQ + SSI. Today patient reports that abdominal pain completely resolved as of last night. Denies alcohol consumption in the recent days preceding hospitalization although does have 3-5 drinks, 2 nights per week. Denies recent change in diet and reports glucose range of 140s-240s at home. Takes long-acting insulin every night and uses Lispro SSI. Denies fever/chills, chest pain, palpitations, SOB, N/V. Follows with [facility] Endocrinology in [place] - sees Chapo Charlton. Review of Systems Review of Systems: Pertinent positives and negatives mentioned in HPI. Physical Exam Physical Exam: General: A&Ox3. NAD. Cooperative. Thin. HEENT: Atraumatic, normocephalic. Pulm: CTAB A&P. -wheezes, -rales, -rhonchi. Symmetrical chest rise. No increase work of breathing. No respiratory distress. Cardiac: RRR, -mrg. Radial pulses intact and symmetrical. Abdominal: soft, non-tender, non-distended, BS x 4 Results & Data Results & Data ([facility]) Vital Signs (Past 12 Hours) Vital Signs Temp Pulse Pulse Resp BP Pulse Ox 01/29/21 12:23 37.2 C 94 H 20 106/70 98 01/29/21 09:18 77 01/29/21 07:57 36.7 C 85 19 116/75 99 01/29/21 02:46 36.8 C 81 16 108/71 97 Resident Activity Tracking Resident Involvement: Resident Care Provided Care Provided: Adult Hospital Medicine (1) DKA (diabetic ketoacidoses) Diabetes mellitus complication detail: without coma Diabetes mellitus type: type 1 Qualified Code(s): E10.10 - Type 1 diabetes mellitus with ketoacidosis without coma (2) Diabetes Diabetes mellitus complication status: with other specified complication Diabetes mellitus type: type 1 Qualified Code(s): E10.69 - Type 1 diabetes mellitus with other specified complication
--- NOTE | 2021-01-29 13:58 | Electrocardiogram Report ---
Test Reason : Blood Pressure : / mmHG Vent. Rate : 106 BPM Atrial Rate : 106 BPM P-R Int : 124 ms QRS Dur : 086 ms QT Int : 338 ms P-R-T Axes : 066 064 037 degrees QTc Int : 448 ms Sinus tachycardia Otherwise normal ECG No previous ECGs available Confirmed by Declan Urrutia ([id number]) on 01/29/2021 1:58:15 PM Referred By: Confirmed By:Rboin Urrutia
[2021-01-29] MEDS ORDERED: INSULIN HUMAN REGULAR PER UNIT 5 UNITS in SYRINGE 4.95 ML IV ONE (14:30)
[2021-01-29 14:39] LABS: BUN Creatinine Ratio 8.4 (10-20); Blood Urea Nitrogen 5 mg/dl (7-18); Calcium 8.8 mg/dl (8.5-10.1); Carbon Dioxide 25 mmol/L (21-32); Chloride 105 mmol/L (98-107); Creatinine Clr Calc Pharmacy 111.9 ml/min; Est GFR (African American) > 150.0; Est GFR (Non-African American) 131.2; Glucose 365 mg/dl (70-99); Magnesium 2.2 mg/dl (1.8-2.4); Potassium 4.3 mmol/L (3.5-5.1); Sodium 136 mmol/L (136-145)
[2021-01-29] MEDS ORDERED: MELATONIN 3 MG TAB PO PRN (15:13)
--- NOTE | 2021-01-29 15:35 | Pharmacy Report ---
Pharmacy Glycemic Short Note 2 - Date of Service January 29, 2021 - Glycemic Short BSG Results (Last 24 hours): 01/28/21 01/28/21 01/28/21 12:38 16:12 16:52 Glucose 180 H POC Glucose 406 H* 153 H 01/28/21 01/28/21 01/28/21 18:12 21:02 22:06 Glucose 169 H 234 H POC Glucose 232 H 01/29/21 01/29/21 01/29/21 02:03 02:34 05:37 Glucose 130 H 82 POC Glucose 117 H 01/29/21 01/29/21 01/29/21 07:04 09:59 10:37 Glucose 372 H* POC Glucose 80 337 H* 01/29/21 01/29/21 13:10 13:45 Glucose 365 H* POC Glucose 362 H* OUTPATIENT ANTIDIABETIC REGIMEN: * Tresiba 24 units HS * Humalog SS + CR 1:10 ASSESSMENT: * 20 y/o F admitted for mild DKA. Patient with history of Type 1 diabetes managed at home on basal and bolus insulin. * Per DKA protocol, patient received fluids yesterday and almost started on an insulin drip. Her BSGs trended down quickly and the drip was not started. * Last night, she was started on her Lantus home dose and Novolog correctional + carb ratio of 1:10. * Fasting BSG was 80 mg/dl today. Will continue pt's home dose of Lantus at HS. * However, pre-lunch BSG was elevated above 300 mg/dl this AM. Patient denied having snacks. * IV regular insulin 5 units (0.1 units/kg) ordered to correct the high BSG. * Most likely high BSGs maybe the result of carb intake. Novolog parameters tightened with dinner today. PLAN FOR INPATIENT GLYCEMIC CONTROL: * Basal insulin: continued * Lantus 24 units SQ HS * Bolus insulin: tightened * NovoLog per scale ACHS or Q6hrs while NPO * Goal Range: Low 110 mg/dL - High 140 mg/dL * Correction Factor: 25 mg/dL/unit * Nutritional / Prandial insulin per carb ratio of 1 unit per 7 grams CHO consumed PLAN FOR DISCHARGE: * TBD
[2021-01-29 18:31] LABS: BUN Creatinine Ratio 5.7 (10-20); Calcium 8.8 mg/dl (8.5-10.1); Creatinine Clr Calc Pharmacy 97.3 ml/min; Est GFR (African American) 145.2; Est GFR (Non-African American) 125.3; Potassium 3.8 mmol/L (3.5-5.1)
[2021-01-29] MEDS: INSULIN GLARGINE SOLOSTAR 100 UNITS/ML 3 ML PEN SC SCH (20:49)
[2021-01-29 22:43] LABS: BUN Creatinine Ratio 10.1 (10-20); Calcium 8.8 mg/dl (8.5-10.1); Creatinine Clr Calc Pharmacy 88.4 ml/min; Est GFR (African American) 130.9; Est GFR (Non-African American) 112.9; Potassium 3.3 mmol/L (3.5-5.1)
[2021-01-30] MEDS ORDERED: POTASSIUM CHLORIDE 20 MEQ/15 ML UDC PO STA (00:36)
[2021-01-30] MEDS ORDERED: POTASSIUM CHLORIDE CRTAB 20 MEQ TABCR PO STA ×3 (01:00→06:48)
[2021-01-30] MEDS: NORMOSOL-R 1,000 ML IV SCH (01:21)
[2021-01-30 03:16] LABS: BUN Creatinine Ratio 19.6 (10-20); Blood Urea Nitrogen 9 mg/dl (7-18); Calcium 8.4 mg/dl (8.5-10.1); Carbon Dioxide 28 mmol/L (21-32); Chloride 109 mmol/L (98-107); Est GFR (African American) > 150.0; Est GFR (Non-African American) 143.2; Glucose 81 mg/dl (70-99); Potassium 3.1 mmol/L (3.5-5.1); Sodium 141 mmol/L (136-145)
[2021-01-30 06:00] LABS: Hemoglobin 13.9 g/dL (12.0-16.0); Mean Corpuscular Hemoglobin 30.4 pg (25-34); Mean Corpuscular Hgb Conc 34.8 g/dL (32-36); Mean Corpuscular Volume 87.5 fL (80-100); Mean Platelet Volume 10.8 fL (7.4-10.4); Platelet Count 198 K/uL (130-400); RDW Coefficient of Variation 12.1 % (11.5-14.5); RDW Standard Deviation 38.7 fL (36.4-46.3); Red Blood Count 4.57 M/uL (4.2-5.4); White Blood Count 4.52 K/uL (4.8-10.8)
[2021-01-30 06:27] LABS: Beta-Hydroxybutyrate 10.06 mg/dl (0.2-2.81); Magnesium 2.2 mg/dl (1.8-2.4)
[2021-01-30 06:45] LABS: BUN Creatinine Ratio 19.8 (10-20); Blood Urea Nitrogen 9 mg/dl (7-18); Calcium 8.8 mg/dl (8.5-10.1); Carbon Dioxide 28 mmol/L (21-32); Chloride 109 mmol/L (98-107); Creatinine Clr Calc Pharmacy 152.6 ml/min; Est GFR (African American) > 150.0; Est GFR (Non-African American) 145.3; Glucose 65 mg/dl (70-99); Potassium 3.6 mmol/L (3.5-5.1); Sodium 142 mmol/L (136-145)
--- NOTE | 2021-01-30 06:49 | Discharge Summary ---
Date of Service January 30, 2021 Admission HPI Per Admitting Provider 20 YOF with past medical history of DM I, followed by her washer hand at [facility]. She sees them about every 3 months. She is on home therapy of Tresiba 24 units HS and Lispro sliding scale. Patient came to the emergency room today after checking her blood glucose this morning and was 500, she reports that she was up all night urinating, as well as nausea with epigastric abdominal discomfort. She endorses eating a personal gilbert pizza last night and covering herself with 5 units insulin and her Triseba. She endorses drinking water only. She denies any fevers, chills, or cough or shortness of breath. For her elevated glucose this morning, she gave herself 4 units of her Lispro prior to coming. Her BG on arrival was 285 with a GAP of 14 and a HCO3 of 15. In the ER the patient received 3 liters of normal saline and a CT scan of the abdomen and pelvis, and ECG. The hospitalist service was called for admission. A repeat of her BMP, and lipase were sent. VBG following volume replacement resulted with PH 7.25, HCO3 14. Will check BG now and BMP now; dose insulin and fluid off of that as well. Patient had one other episode of DKA a couple of years ago that precluded with nausea and vomiting for a few days, she was admitted to the hospital at that time and was placed on insulin drip for 3 days. Admission Exam Per Admitting Provider PHYSICAL EXAM: General: awake, alert, no apparent distress Head: Normocephalic, atraumatic ENT: PERRL, EOMI, no pharyngeal exudate, mucous membranes moist Neuro: AAO x 3, speech clear and appropriate, strength intact bilaterally 5/5, sensation intact and equal all extremities and dermatomes, no pronator drift Chest: equal rise and fall of the chest, no accessory muscle use, no heaves or thrills, Clear to auscultation, on room air, Cardiac: Regular rate and rhythm, telemetry reviewed, skin warm dry, cap refill <3 seconds, peripheral pulses +2 no JVD, no murmur, no JVD, no edema GI: NABS x 4 quadrants, soft, tender to palpation right upper quad, no rebound, guarding or tenderness : Spontaneously voiding, no pain, no CVA tenderness, Extremities: Normal inspection, no peripheral edema or erythema, calfs nontender to palpation Psych: Normal mood and affect Skin: no rash or erythema Principal Diagnosis Diabetic Ketoacidosis Discharge Exam General: A&Ox3. NAD. Cooperative. HEENT: Atraumatic, normocephalic. Pulm: CTAB A&P. -wheezes, -rales, -rhonchi. Symmetrical chest rise. No increase work of breathing. No respiratory distress. Cardiac: RRR, -mrg. Radial pulses intact and symmetrical. Abdominal: soft, non-tender, non-distended, BS x 4 Discharge Data Allergies Allergy/AdvReac Type Severity Reaction Status Date / Time No Known Allergies Allergy Unverified 01/28/21 15:03 Consultations 01/28/21 15:12 ED Decision to Admit Stat Ordered Studies 01/28/21 13:37 CT abd pelvis IV con only Stat Diabetes Follow up Diabetes Follow-up Needed for HgbA1c >9% Hospital Course (1) DKA (diabetic ketoacidoses): 20 yo female with h/o T1DM (follows with [facility] in [place], on Tresiba 24 nits HS + Lispro SSI, last A1c per patient report was ~9 three months ago) who was admitted to [facility] on 01/28 for DKA. DKA, T1DM N/V and abdominal pain, BSG~400, anion gap 14, HCO3 15, pH 7.25 on VBG --> DKA. Quickly improved with Insulin gtt - gap closure and glucose <180 upon transfer to the floor, with home long-acting insulin 24 units + SSI. However glucose somewhat difficult to control (lows of 70s-80s in AM, highs of mid 300s after meals). Suspect this is due to recalibration s/p DKA. - continue home dose Lantus 24 units HS, Novolog SSI - counseled on avoiding high-carb foods - counseled on sx of hypoglycemia - patient will f/u with [facility] in [place] within 1 week for consideration of CGM/insulin pump Abdominal Pain, resolved CT abdomen/pelvis unremarkable and lipase negative - suspect 2/2 DKA/nausea. Patient tolerating full diet without N/V/abdominal pain. (2) Diabetes: (3) Abdominal pain: Total Time Total Time Spent Total Time Spent (In Minutes): 30 minutes Total Time Includes: Examination of the Patient, Discharge Planning and Medication Reconciliation Discharge Plan Discharge Items Patient Disposition: Home - Self-Care Reason For Visit: DKA Discharge Diagnosis: Diabetic Ketoacidosis Activity: Per Instructions section Non-emergency contact: Primary Care Provider and Specialist Call non-emergency contact if: you have any medication questions, your symptoms worsen and you have a fever Follow-up/Referrals: PCP,NO [Primary Care Provider] - Diet: Carb Count or DM1 Addtl Attending Provider Instructions: You were admitted to [facility] on 01/28/2021 for a high- glucose state called DKA, which is a complication of your chronic Type I Diabetes. You were started on an insulin IV drip and IV fluids, and your DKA quickly resolved - your glucose quickly went down to below 200. You were then transitioned to your home dose of 24 units long-acting insulin as well as sliding-scale short acting insulin with meals, starting in the evening. You were kept for an extra day due to glucose in the high 300s after eating pancakes and Mac 'n Cheese. Eventually, all of your labs, including glucose, normalized. We recommend that you avoid high-carbohydrate foods, such as breads, potatoes, pancakes, lithuanian toast, and chips, in the next 1-2 weeks, while your body is normalizing after this attack of DKA. You will be discharged on 01/30 in improved stable condition. In the hospital your Hemoglobin A1c was 12.3, which indicates an average glucose level of 300 over the last three months. We recommend that you follow up with your doctor at [facility] in [place] within one week to address your diabetes, which is unfortunately not controlled with your current medications. We recommend that you speak with your doctor about getting a continuous glucose monitor and insulin pump - doing this will ensure that your sugars stay better controlled, and it will also give you more glucose readings to help you know which foods/drinks to avoid. We recommend that you avoid drinks such as alcohol and juices, which can severely increase your blood glucose. Please continue to take your regular insulin and other medications as prescribed. We hope you continue to feel well. It was a pleasure to help provide your care while you were hospitalized. Pending Studies at Discharge: No Stand-Alone Forms: My [facility], Smoking Cessation Medications and DC Order Prescriptions: Continued insulin lispro [Humalog KwikPen Insulin] 100 unit/mL insulin pen 0 unit SUBCUT TID RF: 0 drospirenone-ethinyl estradiol 3-0.02 mg tablet 1 tab PO HS RF: 0 Tresiba FlexTouch U-100 100 unit/mL (3 mL) insulin pen 24 unit SUBCUT HS RF: 0 Discharge Orders: Discharge Order (Routine); Ordered 01/30/21 Ordered By: Bernardo Hull/Other Patient Handouts: Diabetes and Drinking Alcohol, Managing Type 1 Diabetes, Diabetes: Caring for Your Body, Managing Diabetes: The A1C Test, Diabetes: Meal Planning Admission Data Admit Date/Time: 01/28/21 16:32 Attending Provider: Ronn Minaya Admit Provider: Arie Meadows Primary Care Provider: PCP,DEEPTHI Other Providers: Arie Meadows Other Interventions: Discharge Summary Assessment (RN) Last Done: 01/30/21 10:30 Supervising Physician Co-Signing Physician Notes Attending attestation Pt seen and examined in concert with Dr. Grant. In agreement with the documented findings as noted in the resident documentation with any exceptions or additions as noted here. Continued resolution of abdominal pain - following dietary counseling and decreased carb intake, improved glycemic control On examination, S1/S2 nl RRR no MCG. CTAB. Abd NT/ND BS+ve DKA in type 1 diabetic with ongoing hyperglycemia - resume home insulin regimen with qAC checks, extensive continued counseling on glycemic management with dietary intake and adherence to medication Else see resident documentation as noted. Total attending time spent on this case on the day of discharge: 35 minutes. Resident Activity Tracking Resident Involvement: Resident Care Provided Care Provided: Adult Hospital Medicine
[2021-01-30 06:55] LABS: Basophils # (auto) 0.01 K/uL (0-0.2); Basophils % (auto) 0.2 %; Eosinophils # (auto) 0.06 K/uL (0-0.5); Eosinophils % (auto) 1.3 %; Lymphocytes # (auto) 2.42 K/uL (1.2-3.4); Lymphocytes % (auto) 53.5 %; Monocytes # (auto) 0.45 K/uL (0.11-0.59); Neutrophils # (auto) 1.58 K/uL (1.4-6.5)
[2021-01-30] MEDS: INSULIN ASPART 100 UNITS/ML 3 ML PEN SC SCH (08:55)
[2021-01-30] MEDS ORDERED: INSULIN GLARGINE SOLOSTAR 100 UNITS/ML 3 ML PEN SC SCH (21:00)
== END 2021-01-30 11:00 | disposition home or self-care (01) ==
LOC: ED 12:17 → SUATTDRO 16:32 → INTOOBSV 16:32 → 2S 16:32